=== PATIENT | male | born 1965 | race Caucasian/White ===

== ENCOUNTER 2016-10-20 18:50 | Emergency (ER) ==
[2016-10-20 18:59] VITALS: BP 140/84; TEMP 98.3; BMI 26.3
--- NOTE | 2016-10-20 19:00 | ED.PDOC ---
General ED Provider: Dr. MECHE FLORES-ER Chief Complaint: Back Pain Stated Complaint: dr landa referred me to dr connors--im supposed to see him in december--has lower back pain into her legs and feet Time Seen by Physician: 18:58 Mode of Arrival: Walk-In Information Source: Patient Exam Limitations: No limitations Primary Care Provider: MECHE FOLRES Nursing and Triage Documentation Reviewed and Agree: Yes Musculoskeletal Complaint Exam - Back Pain Complaint/Exam Mechanism of Injury: Reports: No known trauma Onset/Duration: several mos Symptoms Are: Still present Timing: Constant Episodes Lasting: Weeks Initial Severity: Mild Current Severity: Moderate Location: Reports: Discrete Character: Reports: Dull, Aching, Throbbing, Stiffness Aggravating: Reports: Movements, Lifting, Bending, Walking Alleviating: Reports: None Associated Signs and Symptoms: Denies: Swelling, Redness, Bruising, Fever, Weakness, Numbness, Tingling, Abdominal pain, Flank pain, Bladder incontinence, Bowel incontinence, Weight loss, Pain with weight bearing Related History: Reports: Previous back injury TAD Risk Factors: Reports: None AAA Risk Factors: Reports: None Cauda Equina Risk Factors: Reports: None Epidural Abcess Risk Factors: Reports: None Related Surgical History: Reports: None Focal Tenderness: Yes Paraspinal Muscle Tenderness: Yes Paraspinal Muscle Spasm: No Scoliosis: No Lordosis: No Kyphosis: No SLR Test: Right Negative, Left Negative Hip Motion Testing Pain: Right Negative, Left Negative Focal Weakness: Present: None Focal Sensory Loss: Present: None Gait: Present: Abnormal Differential Diagnoses: Herniated Disk, Sprain Review of Systems - Review Of Systems Constitutional: Reports: No symptoms Eyes: Reports: No symptoms Ears, Nose, Mouth, Throat: Reports: No symptoms Respiratory: Reports: No symptoms Cardiac: Reports: No symptoms GI: Reports: No symptoms : Reports: No symptoms Musculoskeletal: Reports: Back pain Skin: Reports: No symptoms Neurological: Reports: No symptoms Endocrine: Reports: No symptoms Hematologic/Lymphatic: Reports: No symptoms All Other Systems: Reviewed and Negative Past Medical History - Past Medical History Previously Healthy: Yes Endocrine: Reports: None Cardiovascular: Reports: None Respiratory: Reports: None Hematological: Reports: None Gastrointestinal: Reports: None Genitourinary: Reports: None Neuro/Psych: Reports: None Musculoskeletal: Reports: Back Pain (Bulging disc - remote past (10 years ago)) Cancer: Reports: None - Surgical History General Surgical History: Reports: Unknown - Family History Family History: Reports: Unknown - Social History Smoking Status: Former smoker Hx Substance Use: No Alcohol Screening: None Lives: With family Physical Exam - Physical Exam Appearance: Well-appearing, No pain distress, Well-nourished Pain Distress: Moderate Eyes: GUY ENT: Ears normal, Nose normal, Oropharynx normal Neck: Supple Respiratory: Airway patent, Breath sounds clear, Breath sounds equal, Respirations nonlabored Cardiovascular: RRR, Pulses normal, No rub, No murmur GI/: Soft, Nontender, No masses, Bowel sounds normal, No Organomegaly Musculoskeletal: Limited ROM Skin: Warm, Dry, Normal color Neurological: Sensation intact, Motor intact, Reflexes intact, Cranial nerves intact, Alert, Oriented Psychiatric: Affect appropriate, Mood appropriate Critical Care Note - Critical Care Note Total Time (mins): 0 Course - Course Vital Signs: Temp Pulse Resp BP Pulse Ox 10/20/16 18:50 98.3 F 84 18 140/84 98 Departure - Departure Time of Disposition: 19:00 Disposition: HOME SELF-CARE Discharge Problem: Chronic low back pain without sciatica Instructions: Chronic Back Pain (ED) Condition: Good Pt referred to PMD for follow-up: Yes Additional Instructions: norco 10mg q 4hrs prn pain #20--medrol dose pack--keep appt with dr connors Allergies/Adverse Reactions: Allergies No Known Allergies Allergy (Verified 10/20/16 18:52) Home Medications: Ambulatory Orders 1 [No Reported Medications] 10/20/16 Disposition Discussed With: Patient
== END 2016-10-20 19:09 | disposition home or self-care (01) ==
LOC: ED 18:50
DX: M54.5 Low back pain (principal); G89.29 Other chronic pain
CPT/HCPCS: 99282

== ENCOUNTER 2016-11-14 10:26 | Outpatient (CLI) ==
--- NOTE | 2016-11-14 11:20 | CT ---
EXAM: CT of the abdomen pelvis without contrast History: Hematuria and abdominal pain. Comparison: None available. Technique: Multiplanar CT images through the abdomen pelvis were obtained without the administratio n of IV contrast Findings: Lung bases are free of consolidation. No acute osseous abnormalities. Moderate to severe degenerative disc disease at L5-S1. Cholelithiasis. No focal liver or splenic lesions. No peripancreatic inflammation. Adrenal glands are unremarkable. No renal stones and no hydronephrosis. The appendix is normal. No ureteral alvaro culi. Atherosclerotic vascular calcifications. Small scattered retroperitoneal lymph nodes. No juan jose wel obstruction. No bladder wall thickening. Prostatic calcifications. No perirectal inflammation . Colonic diverticulosis. There is inflammation seen adjacent to the proximal sigmoid colon. No a bscess. Impression: 1. Acute uncomplicated diverticulitis of the proximal sigmoid colon. 2. No renal stones and no hydronephrosis. 3. Cholelithiasis.
== END 2016-11-14 10:27 ==
LOC: RAD 10:26
PROVIDERS: ATTEND Family Medicine
DX: R31.9 Hematuria, unspecified (principal)
CPT/HCPCS: 74176

== ENCOUNTER 2017-01-07 10:12 | Emergency (ER) ==
[2017-01-07 10:18] VITALS: BP 136/79; TEMP 99.3; BMI 25.0
[2017-01-07 10:48] LABS: BASOPHILS % (AUTO) 0.6 % (0.0-3.0); EOSINOPHILS # (AUTO) 0.2 K/ul (0.0-0.7); EOSINOPHILS % (AUTO) 2.9 % (0.0-7.0); HEMATOCRIT 40.2 % (42.0-52.0); HEMOGLOBIN 13.9 g/dl (14.0-18.0); IMMATURE GRANULOCYTE % (AUTO) 0.3 % (0.0-5.0); LYMPHOCYTES # (AUTO) 1.6 K/uL (0.60-3.4); LYMPHOCYTES % (AUTO) 23.4 (10.0-50.0); MEAN CORPUSCULAR HEMOGLOBIN 30.5 pg (27.0-31.0); MEAN CORPUSCULAR HGB CONC 34.6 (31.8-35.4); MEAN CORPUSCULAR VOLUME 88.4 fl (80.0-94.0); MONOCYTES # (AUTO) 0.4 K/uL (0.4-2.0); MONOCYTES % (AUTO) 5.4 (0-10); NEUTROPHILS # (AUTO) 4.7 K/ul (2.0-6.9); NEUTROPHILS % (AUTO) 67.4; PLATELET COUNT 232 10^3/uL (140-440); RED BLOOD COUNT 4.55 10^6/ul (4.70-6.10); WHITE BLOOD COUNT 6.98 K/ul (4.2-10.2)
--- NOTE | 2017-01-07 10:58 | DI ---
EXAM: Two-view chest HISTORY: Cough TECHNIQUE: Frontal and lateral views of the chest were obtained. FINDINGS: The heart is normal size. Lungs are clear. The pulmonary vasculature appears normal. T he osseous structures and mediastinal contours are normal. IMPRESSION: No active cardiopulmonary disease.
[2017-01-07 11:27] LABS: BILIRUBIN,URINE Negative (NEGATIVE); KETONES,URINE Negative (NEGATIVE); LEUKOCYTE ESTERASE ,URINE Negative (NEGATIVE); NITRITE,URINE Negative (NEGATIVE); PROTEIN,URINE Negative (NEGATIVE); URINE, BLOOD Trace-lysed (NEGATIVE)
[2017-01-07 11:29] LABS: ADD URINE MICROSCOPIC YES
[2017-01-07 11:30] LABS: ALANINE AMINOTRANSFERASE 14 U/L (12-78); ALBUMIN 3.9 g/dL (3.4-5.0); ALKALINE PHOSPHATASE 77 U/L (50-136); ANION GAP 17.5; ASPARTATE AMINO TRANSFERASE 12 U/L (15-37); BILIRUBIN,TOTAL 0.56 mg/dL (0.00-1.20); BLOOD UREA NITROGEN 13 mg/dL (7-18); BUN/CREATININE RATIO 12.74; CALCIUM 8.9 mg/dL (8.2-10.2); CARBON DIOXIDE 22 mmol/L (21-32); CHLORIDE 105 mmol/L (98-107); CREATINE KINASE 68 U/L; CREATININE 1.02 mg/dL (0.60-1.10); GLUCOSE 113 mg/dL (70-100); LIPASE 29 U/L (8-78); POTASSIUM 3.5 mmol/L (3.5-5.1); SODIUM 141 mmol/L (136-145); TOTAL PROTEIN 6.9 g/dL (6.4-8.2)
--- NOTE | 2017-01-07 11:46 | ED.PDOC ---
General ED Provider: Dr. AARON GARG Chief Complaint: Dizziness Stated Complaint: dizziness Time Seen by Physician: 10:13 (resolved upon arrival no deficits) Mode of Arrival: Walk-In Information Source: Patient Exam Limitations: No limitations Primary Care Provider: MECHE FLORES Nursing and Triage Documentation Reviewed and Agree: Yes Neurological Complaint Exam - Dizziness Complaint/Exam Last Known Well: dizziness Onset: Gradual Duration: minutes Symptoms Are: Still present Timing: Constant Initial Severity: Moderate Current Severity: Moderate Character: Reports: Dizzy Aggravating: Reports: None Alleviating: Reports: None Associated Signs and Symptoms: Denies: Nausea, Vomiting, Diaphoresis, Tinnitus, Chest pain, Short of air, Palpitations, Unsteady gait, GI blood loss, Visual changes, Decreased oral intake, Change in medication, Change in diet, OTC meds, Loss of balance Related History: Similar episode Cardiac Risk Factors: Reports: None CVA Risk Factors: Reports: None Related Surgical History: Reports: None JVD Present: No Carotid Bruit Present: No Rectal Heme Positive: No Glascow Coma Scale (see protocol): 15 Nystagmus Present: No Gag Reflex Present: No Meningeal Signs Positive: No Focal Weakness: Present: None Focal Sensory Loss: Present: None Gait: Normal Differential Diagnoses: Hypovolemia Quality Indicators for Cardiac Chest Pain: EKG in 10min. Quality Indicators for AMI: EKG in 10min. Quality Indicator For Non-Traumatic Chest Pain/Syncope: EKG Performed Review of Systems - Review Of Systems Constitutional: Reports: No symptoms Eyes: Reports: No symptoms Ears, Nose, Mouth, Throat: Reports: No symptoms Respiratory: Reports: No symptoms Cardiac: Reports: No symptoms GI: Reports: No symptoms : Reports: No symptoms Musculoskeletal: Reports: No symptoms Skin: Reports: No symptoms Neurological: Reports: Other (dizzy) Endocrine: Reports: No symptoms Hematologic/Lymphatic: Reports: No symptoms All Other Systems: Reviewed and Negative Past Medical History - Past Medical History Previously Healthy: Yes Endocrine: Reports: None Cardiovascular: Reports: None Respiratory: Reports: None Hematological: Reports: None Gastrointestinal: Reports: None Genitourinary: Reports: None Neuro/Psych: Reports: None Musculoskeletal: Reports: Back Pain (Bulging disc - remote past (10 years ago)) Cancer: Reports: None - Surgical History General Surgical History: Reports: Unknown - Family History Family History: Reports: Unknown - Social History Smoking Status: Former smoker Hx Substance Use: No Alcohol Screening: None Physical Exam - Physical Exam Appearance: Well-appearing, No pain distress, Well-nourished Eyes: GUY, EOMI, Conjunctiva clear ENT: Ears normal, Nose normal, Oropharynx normal Respiratory: Airway patent, Breath sounds clear, Breath sounds equal, Respirations nonlabored Cardiovascular: RRR, Pulses normal, No rub, No murmur GI/: Soft, Nontender, No masses, Bowel sounds normal, No Organomegaly Musculoskeletal: Normal strength, ROM intact, No edema, No calf tenderness Skin: Warm, Dry, Normal color Neurological: Sensation intact, Motor intact, Reflexes intact, Cranial nerves intact, Alert, Oriented Psychiatric: Affect appropriate, Mood appropriate Critical Care Note - Critical Care Note Total Time (mins): 0 Course - Course Hematology/Chemistry: 01/07/17 10:45 01/07/17 10:45 Orders, Labs, Meds: Lab Review 01/07/17 01/07/17 10:45 11:00 WBC 6.98 RBC 4.55 L Hgb 13.9 L Hct 40.2 L MCV 88.4 MCH 30.5 MCHC 34.6 RDW Coeff of Elicia 12.7 Plt Count 232 Immature Gran % (Auto) 0.3 Neut % (Auto) 67.4 Lymph % (Auto) 23.4 Kendall % (Auto) 5.4 Eos % (Auto) 2.9 Baso % (Auto) 0.6 Immature Gran # (Auto) 0.0 Neut # 4.7 Lymph # 1.6 Kendall # 0.4 Eos # 0.2 Baso # 0.0 Sodium 141 Potassium 3.5 Chloride 105 Carbon Dioxide 22 Anion Gap 17.5 BUN 13 Creatinine 1.02 Estimated GFR (MDRD) 76.00 BUN/Creatinine Ratio 12.74 Glucose 113 H Calcium 8.9 Total Bilirubin 0.56 AST 12 L ALT 14 Alkaline Phosphatase 77 Total Creatine Kinase 68 Troponin I < 0.0100 Total Protein 6.9 Albumin 3.9 Globulin 3.0 Albumin/Globulin Ratio 1.30 Lipase 29 TSH 0.941 Free T4 0.98 Urine Color Yellow Urine Clarity Clear Urine pH 6.0 Ur Specific [place] 1.010 Urine Protein Negative Urine Glucose (UA) Negative Urine Ketones Negative Urine Blood Trace-lysed Urine Nitrite Negative Urine Bilirubin Negative Urine Urobilinogen 0.2 Ur Leukocyte Esterase Negative Ur Squamous Epith Cells Pending Orders Category Date Time Status EKG-(ED ONLY) Stat CARDIO 01/07/17 10:33 Completed CBC W/ AUTO DIFF Stat LAB 01/07/17 10:45 Completed COMPREHENSIVE METABOLIC PANEL Stat LAB 01/07/17 10:45 Completed CREATINE KINASE Stat LAB 01/07/17 10:45 Completed EHRLICHIA DNA, PCR Stat LAB 01/07/17 10:45 Received FREE T4 (FREE THYROXINE) Stat LAB 01/07/17 10:45 Completed LIPASE Stat LAB 01/07/17 10:45 Completed LYME, WESTERN BLOT, SERUM Stat LAB 01/07/17 10:45 Received THYROID STIMULATING HORMONE Stat LAB 01/07/17 10:45 Completed TROPONIN I Stat LAB 01/07/17 10:45 Completed UA [URINALYSIS C & S IF INDICATED] Stat LAB 01/07/17 11:00 Results CHEST, 2 VIEWS PA & LAT Stat RADS 01/07/17 10:32 Completed Vital Signs: Temp Pulse Resp BP Pulse Ox 01/07/17 10:12 99.3 F 63 20 136/79 99 Departure - Departure Time of Disposition: 11:46 Disposition: HOME SELF-CARE Discharge Problem: Dizziness Instructions: Dizziness (ED) Condition: Good Pt referred to PMD for follow-up: No Additional Instructions: Please call your Family Physician as soon as possible to schedule a follow-up appointment. Allergies/Adverse Reactions: Allergies No Known Allergies Allergy (Verified 01/07/17 10:20) Home Medications: Ambulatory Orders Hydrocodone Bit/Acetaminophen [Lutts 10-325] 1 each PO Q6HR PRN 01/07/17 Disposition Discussed With: Patient
[2017-01-09 03:53] LABS: IGG P18 AB Absent (.); IGG P23 AB Present (.); IGG P28 AB Absent (.); IGG P30 AB Absent (.); IGG P39 AB Absent (.); IGG P41 AB Present (.); IGG P45 AB Absent (.); IGG P58 AB Absent (.); IGG P66 AB Absent (.); IGG P93 AB Absent (.); IGM P39 AB Absent (.); IGM P41 AB Absent (.)
[2017-01-09 10:12] LABS: LYME IGG WB INTERP Negative (.); LYME IGM WB INTERP Negative (.)
== END 2017-01-07 12:06 | disposition home or self-care (01) ==
LOC: ED 10:12
DX: R42 Dizziness and giddiness (principal)
CPT/HCPCS: 36415; 80053; 81001; 82550; 83690; 84439; 84443; 84484; 85025; 86617; 87798; 93005; 93010; 99283

== ENCOUNTER 2017-03-12 12:45 | Emergency (ER) ==
[2017-03-12 12:49] VITALS: BP 152/75; TEMP 97.9; BMI 23.7
[2017-03-12] MEDS ORDERED: PROTONIX IV IVP STA (12:49)
[2017-03-12] MEDS ORDERED: SOLU-MEDROL 125 MG IVP STA (12:49)
[2017-03-12] MEDS ORDERED: BENADRYL IM STA (12:50)
--- NOTE | 2017-03-12 14:06 | ED.PDOC ---
General ED Provider: Dr. AARON GARG Chief Complaint: Allergic Reaction Stated Complaint: insect bite Time Seen by Physician: 12:45 (seen with elizabeth you RN AT ALL TIMES ) Information Source: Patient Exam Limitations: No limitations (NO RESP DISTRESS ON ARRIVAL) Primary Care Provider: MECHE FLORES Nursing and Triage Documentation Reviewed and Agree: Yes Trauma/Injury Complaint Exam - Bite Injury Complaint/Exam Location of Bite: LEFT ARM Bite Occured: PRIOR TO ARRIVAL Symptoms Are: Resolved Animal Immunized: Reports: N/A Initial Severity: Mild Current Severity: Mild Character: Reports: Puncture Aggravating: Reports: None Associated Signs and Symptoms: Denies: Fever, Erythema, Drainage, Swelling, Lymphadenopathy, Numbness, Tingling, Limited ROM Related History: Reports: Unprovoked Animal Available for Observation: No Animal Control Notified: No Infection/Sepsis Risk Factors: Present: None Bite Findings: Present: Erythema Drainage: Present: None ROM Painful at: NO Differential Diagnoses: Puncture Review of Systems - Review Of Systems Constitutional: Reports: No symptoms Eyes: Reports: No symptoms Ears, Nose, Mouth, Throat: Reports: No symptoms Respiratory: Reports: No symptoms Cardiac: Reports: No symptoms GI: Reports: No symptoms : Reports: No symptoms Musculoskeletal: Reports: No symptoms Skin: Reports: No symptoms Neurological: Reports: No symptoms Endocrine: Reports: No symptoms Hematologic/Lymphatic: Reports: No symptoms All Other Systems: Reviewed and Negative Past Medical History - Past Medical History Previously Healthy: Yes Endocrine: Reports: None Cardiovascular: Reports: None Respiratory: Reports: None Hematological: Reports: None Gastrointestinal: Reports: None Genitourinary: Reports: None Neuro/Psych: Reports: None Musculoskeletal: Reports: Back Pain (Bulging disc - remote past (10 years ago)) Cancer: Reports: None - Surgical History General Surgical History: Reports: Unknown - Family History Family History: Reports: Unknown - Social History Smoking Status: Former smoker Hx Substance Use: No Alcohol Screening: None Physical Exam - Physical Exam Appearance: Well-appearing, No pain distress, Well-nourished Eyes: GUY, EOMI, Conjunctiva clear ENT: Ears normal, Nose normal, Oropharynx normal Respiratory: Airway patent, Breath sounds clear, Breath sounds equal, Respirations nonlabored Cardiovascular: RRR, Pulses normal, No rub, No murmur GI/: Soft, Nontender, No masses, Bowel sounds normal, No Organomegaly Musculoskeletal: Normal strength, ROM intact, No edema, No calf tenderness Skin: Warm, Dry, Normal color Neurological: Sensation intact, Motor intact, Reflexes intact, Cranial nerves intact, Alert, Oriented Psychiatric: Affect appropriate, Mood appropriate Critical Care Note - Critical Care Note Total Time (mins): 0 Course - Course Orders, Labs, Meds: Orders Category Date Time Status ED IV/MEDIPORT/POWERPORT .ONCE EMERGENCY 03/12/17 12:49 Active 0.9 % Sodium Chloride [Saline Flush] MEDS 03/12/17 12:49 Active 1 syr IVF PRN PRN Diphenhydramine Inj [Benadryl] MEDS 03/12/17 12:50 Discontinued 25 mg IM ONCE STA Methylprednisolone Sod Succ/Pf [Solu-Medrol 125 mg] MEDS 03/12/17 12:49 Discontinued 125 mg IVP ONCE STA Pantoprazole Sodium [Protonix IV] MEDS 03/12/17 12:49 Discontinued 40 mg IVP ONCE STA Medications Generic Name Dose Route Start Last Admin Trade Name Freq PRN Reason Stop Dose Admin Sodium Chloride 1 syr 03/12/17 12:49 03/12/17 12:56 Saline Flush IVF 1 syr PRN PRN Administration To flush IV Discontinued Medications Generic Name Dose Route Start Last Admin Trade Name Freq PRN Reason Stop Dose Admin Diphenhydramine HCl 25 mg 03/12/17 12:50 03/12/17 12:57 Benadryl IM 03/12/17 12:51 25 mg ONCE STA Administration Methylprednisolone Sodium Succinate 125 mg 03/12/17 12:49 03/12/17 13:00 Solu-Medrol 125 Mg IVP 03/12/17 12:50 125 mg ONCE STA Administration Pantoprazole Sodium 40 mg 03/12/17 12:49 03/12/17 13:07 Protonix Iv IVP 03/12/17 12:50 40 mg ONCE STA Administration Vital Signs: Temp Pulse Resp BP Pulse Ox 03/12/17 12:45 97.9 F 116 H 20 152/75 H 97 Departure - Departure Time of Disposition: 14:05 (SEEN WITH NURSING STAFF AT ALL TIMES PT AT NO TIME HAS DEMONSTRATED ANPHYLACTIC REACTION TO THE INSECT IN THE QUESTION) Disposition: HOME SELF-CARE Discharge Problem: Insect bite Qualifiers: Encounter type: initial encounter Qualified Code(s): W57.XXXA - Bitten or stung by nonvenomous insect and other nonvenomous arthropods, initial encounter Instructions: Insect Bite or Sting (ED) Condition: Good Pt referred to PMD for follow-up: Yes Additional Instructions: Please call your Family Physician as soon as possible to schedule a follow-up appointment. Allergies/Adverse Reactions: Allergies No Known Allergies Allergy (Verified 03/12/17 13:12) Home Medications: Ambulatory Orders 1 [No Reported Medications] 03/12/17
== END 2017-03-12 14:15 | disposition home or self-care (01) ==
LOC: ED 12:45
DX: S40.862A Insect bite (nonvenomous) of left upper arm, initial encounter (principal); W57.XXXA Bitten or stung by nonvenomous insect and other nonvenomous arthropods, initial encounter
CPT/HCPCS: 96372; 96374; 96375; 99283

== ENCOUNTER 2017-08-20 11:02 | Outpatient (CLI) ==
--- NOTE | 2017-08-20 12:23 | DI ---
EXAM: PA and lateral views of the chest HISTORY: Cough. COMPARISON: Chest x-ray 01/07/2017 and multiple priors FINDINGS: The cardiomediastinal silhouette is normal. There is no pneumothorax or pleural effusion. There is no consolidation, nodule or mass. The osseous structures are unremarkable. IMPRESSION: No acute cardiopulmonary process
== END 2017-08-20 11:03 | disposition home or self-care (01) ==
LOC: RAD 11:02
PROVIDERS: ATTEND Family Medicine
DX: R05 Cough (principal)

== ENCOUNTER 2018-04-14 08:57 | Outpatient (CLI) ==
--- NOTE | 2018-04-14 17:05 | MRI ---
EXAM: Lumbar spine MRI without contrast. HISTORY: Chronic midline low back pain and bilateral sciatica. COMPARISON: Lumbar spine MRI 05/05/2016. TECHNIQUE: Multiplanar, multisequence MR images were acquired of the lumbar spine without contrast. FINDINGS: Conus medullaris ends at L1 and has normal morphology and signal intensity. Canal diamete r is developmentally narrow. Five non bearing lumbar vertebra are present. There is minor lumbar de xtroscoliosis centered at L3-4 and of trace retrolisthesis of L2 on L3 and 2 mm retrolisthesis of L5 on S1. The lumbar vertebra are generally normal in height. Intrinsic bone marrow signal is mildly h eterogeneous. There is minor lumbar ventral spondylosis, most significant at L2-3 and L3-4. At L5-L 1, there is a diffuse disc osteophyte complex with moderate to marked disc space narrowing and mild e ndplate irregularity with mild anterolateral modic type 2 endplate changes bilaterally. There is dis c desiccation at L2-3 and L5-S1 and minor vacuum phenomenon at L5-S1. The partially visualized liver, spleen and kidneys are without hydronephrosis. There is a probable s mall left renal parapelvic cyst. L1-2: The intervertebral disc is normal. L2-3: There is mild disc bulge that minimally narrows the inferior neural foramina bilaterally, great er on the left and there is a central and left paracentral annular tear. There is minor right and mi ld left neural foraminal stenosis. There is no central canal stenosis. L3-4: There is a mild disc bulge that is asymmetric to the left which encroaches on the left L3 nerv e exiting the neural foramen. Mild bilateral hypertrophic facet arthropathy and ligamentum flavum hy pertrophy is present. There is mild right and mild-moderate left neural foraminal stenosis. There i s no central canal stenosis. L4-5: There is a mild diffuse disc bulge and endplate osteophytes with a possible small central disc protrusion that effaces the ventral thecal sac. This may contact the L5 nerve roots bilaterally and narrows the inferior neural foramen bilaterally with encroachment on both exiting L4 nerves. Minor left and mild right facet arthropathy and ligamentum flavum hypertrophy is present. There is moderat e right and mild to moderate left foraminal stenosis. There is no central canal stenosis. L5-S1: There is a diffuse spondylotic disc bulge with endplate osteophytes that has a small more foc al central component that contacts the anteromedial S1 nerve roots bilaterally. This narrows the inf erior neural foramina and there is minor bilateral facet arthropathy, greater on the left. There is mild to moderate right and moderate left neural foraminal stenosis. There is no central canal stenos is. IMPRESSION: 1. Stable mild lumbar degenerative spondylosis and minor facet arthropathy without central canal clementina nosis. 2. Mild discogenic disease at L4-5 with possible small central disc protrusion. 3. No change mild to moderate left L3-4 and L4-5, moderate right L4-5 and mild to moderate right and moderate left L5-S1 neural foraminal stenosis.
== END 2018-04-14 08:58 | disposition home or self-care (01) ==
LOC: RAD 08:57
PROVIDERS: ATTEND Family Medicine
DX: M54.41 Lumbago with sciatica, right side (principal); M54.42 Lumbago with sciatica, left side; G89.29 Other chronic pain